=== PATIENT | male | born 1960 | race Hispanic/Latino ===

== ENCOUNTER 2020-12-29 14:00 | Outpatient (CLI) | payer MEDICARE ==
--- NOTE | 2020-12-29 14:38 | RAD ---
LUMBAR SPINE 3 VIEWS: HISTORY: Back pain. FINDINGS: Lumbar vertebrae maintain height and alignment. Loss of disk space height at L4-5 and L5-S1. Mild t o moderate degenerative spurring. Facet hypertrophy. No evidence of spondylolisthesis. IMPRESSION: Mild to moderate degenerative changes of the lumbar spine as described. POS: [id number]
== END 2020-12-29 14:01 | disposition home or self-care (01) ==
LOC: RAD-FRANK 14:00
PROVIDERS: ATTEND Nurse Practitioner Family
DX: R30.0 Dysuria (principal); M47.816 Spondylosis without myelopathy or radiculopathy, lumbar region
CPT/HCPCS: 72100